=== PATIENT | male | born 1955 ===

== ENCOUNTER 2017-05-17 23:50 | Emergency (ER) | payer SELFPAY ==
[2017-05-18] MEDS ORDERED: Ibuprofen 800 MG Tab PO ONE (00:21)
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
--- NOTE | 2017-05-18 07:09 | CR ---
Chest: Two views of the chest are obtained. Comparison: No previous study. Heart size is normal. Tortuous thoracic aorta is seen. Multiple old left-sided rib fractures are noted. Previous cervical spine surgery is seen. Old right scapular fracture is present. Lungs are clear with no acute infiltrates. Impression: 1. Old bony trauma as noted above. Nothing acute is appreciated on two-view chest x-ray. Diagnostic code #2
--- NOTE | 2017-05-19 06:52 | CT ---
CT cervical spine Technique: Multiple axial sections through the cervical spine were obtained. Reconstructed sagittal and coronal images were reviewed. Findings: Spinal fixation is identified from C5-T2. Fusion is identified at C5-C6, C6-C7 and C7-T1. Diffuse anterior osteophytes are seen. Visualized mastoid sinuses and middle ear cavities are clear. Posterior skull base is intact. Degenerative change noted within the articulation of the dens and transverse process of C1. Degenerative apophyseal change seen throughout the cervical spine. No acute fracture or abnormal subluxation is seen. Moderate left sided neural foraminal stenosis noted at C3-C4. Mild right sided neural foraminal stenosis noted at C5-C6. Impression: 1. Extensive surgery and degenerative change at multiple levels. 2. No acute abnormality identified on CT study of the cervical spine. Diagnostic code #3 I agree with preliminary report issued by [facility] ([facility] report finalized on 05/18/17, 2:26 AM Central Time)
--- NOTE | 2017-05-19 06:52 | CT ---
Head CT Technique: Multiple axial sections through the brain were obtained. Intravenous contrast was not utilized. Comparison: No previous intracranial imaging. Findings: Ventricles along with basal cisterns and sulci over the convexities are mildly prominent. Diminished areas of density are seen within the periventricular and subcortical white matter compatible with small vessel ischemic demyelination change. Old lacunar infarct noted within the left basal ganglia. No evidence of intracranial hemorrhage. No midline shift or mass effect is seen. Small scalp calcification noted within the posterior left parietal region as an incidental note. Bone window settings were reviewed which show no acute calvarial abnormality. Mucosal thickening noted within the frontal, ethmoid and maxillary sinuses. Small amount of fluid seen within sphenoid sinus. Impression: 1. Pansinusitis. Small fluid level within the sphenoid sinus. Uncertain if these findings are chronic or represent a combination of chronic and acute sinusitis. 2. Senescent change as described above. 3. No acute intracranial abnormality is seen. Diagnostic code #3 I agree with preliminary report issued by [facility] ([facility] report finalized on 05/18/17, 2:21 AM Central Time)
--- NOTE | 2017-05-19 06:54 | CT ---
CT facial bones Technique: Multiple axial sections through the facial bones were obtained. Reconstructed coronal and sagittal images were reviewed. Comparison: No previous facial bone exam. Mucosal thickening seen within the frontal, ethmoid and maxillary sinuses. Small amount of fluid seen within the right sphenoid sinus. No facial bone fracture is identified. Right and left globes are symmetric. Degenerative change partially seen within the cervical spine. Impression: 1. Sinus disease, uncertain if this is old or could represent a combination of old and acute sinusitis given the air-fluid level within the sphenoid sinus. 2. Nothing acute is appreciated on CT study of the facial bones. Diagnostic code #3 I agree with preliminary report issued by [facility] ([facility] report finalized on 05/18/17, 2:31 AM Central Time)
== END 2017-05-18 02:27 | disposition home or self-care (01) ==
LOC: JD.ED 23:50
DX: S00.12XA Contusion of left eyelid and periocular area, initial encounter (principal); S80.212A Abrasion, left knee, initial encounter; S80.211A Abrasion, right knee, initial encounter; R07.89 Other chest pain; I10 Essential (primary) hypertension; F17.210 Nicotine dependence, cigarettes, uncomplicated; Y04.0XXA Assault by unarmed brawl or fight, initial encounter
CPT/HCPCS: 70450; 70486; 71020; 72125; 99285; A9270; 99283